=== PATIENT | female | born 1950 | race Caucasian/White ===

== ENCOUNTER 2023-02-06 09:56 | Inpatient (IN) ==
[2023-02-06] MEDS ORDERED: IOPAMIDOL 100 ML BOTTLE IV ONE (09:57)
[2023-02-06] MEDS ORDERED: 0.9 % SODIUM CHLORIDE 1,000 ML IV ONE (10:06)
[2023-02-06 10:31] LABS: POC Calcium, Ionized 1.14 (1.16-1.32); POC Creatinine 0.9 (0.6-1.2); POC Potassium 4.1 (3.3-5.1)
[2023-02-06] MEDS ORDERED: HYDROmorphone 0.5 MG/0.5 ML SYRINGE IV PRN (10:35)
[2023-02-06] MEDS ORDERED: ONDANSETRON 4 MG/2 ML VIAL IV ONE (10:35)
[2023-02-06 10:58] LABS: Basophils # (Auto) 0.04 K/mcL (0.00-0.30); Basophils % (Auto) 0.3 % (0.0-2.0); Eosinophils # (Auto) 0.05 K/mcL (0.00-0.70); Eosinophils % (Auto) 0.4 % (0.0-7.0); Hematocrit 44.3 % (34.1-44.9); Hemoglobin 14.9 g/dL (11.2-15.7); Mean Cell Volume 90.2 fL (80.0-100.0); Mean Corpuscular HGB Conc 33.6 g/dL (31.0-36.0); Mean Platelet Volume 10.5 fL (8.8-12.5); Monocytes # (Auto) 1.36 K/mcL (0.10-0.90); Monocytes % (Auto) 9.9 % (1.0-12.0); Platelet Count 378 K/mcL (140-440); RBC 4.91 M/mcL (3.59-5.38); Red Cell Distribution Width 12.5 % (11.5-14.5); WBC 13.8 K/mcL (4.5-11.0)
[2023-02-06 11:07] LABS: ALT/SGPT 15 U/L (<40); AST/SGOT 14 U/L (<32); Albumin 4.2 gm/dL (3.2-5.2); Alkaline Phosphatase 117 U/L (39-117); Bilirubin,Direct 0.4 mg/dL (<0.3); Globulin 3.3 gm/dL (2.2-3.7)
[2023-02-06] MEDS ORDERED: PIPERACILLIN SODIUM/TAZOBACTAM 3.375 GM in DEXTROSE 5% IN WATER 50 ML IV ONE (12:06)
[2023-02-06] MEDS ORDERED: PANTOPRAZOLE 40 MG VIAL IV ONE ×2 (13:46→14:14)
[2023-02-06] MEDS ORDERED: PIPERACILLIN SODIUM/TAZOBACTAM 3.375 GM in DEXTROSE 5% IN WATER 100 ML IV SCH ×2 (16:00→20:00)
[2023-02-06] MEDS: DEXTROSE 5%-LR 1,000 ML IV SCH (16:25)
[2023-02-06] MEDS: ONDANSETRON 4 MG/2 ML VIAL IV PRN (16:45)
[2023-02-06] MEDS: HYDROmorphone 0.5 MG/0.5 ML SYRINGE IV PRN ×3 (16:46→23:42)
[2023-02-06] MEDS: PIPERACILLIN SODIUM/TAZOBACTAM 3.375 GM in DEXTROSE 5% IN WATER 100 ML IV SCH (18:43)
[2023-02-07] MEDS: PIPERACILLIN SODIUM/TAZOBACTAM 3.375 GM in DEXTROSE 5% IN WATER 100 ML IV SCH ×3 (01:15→16:05)
[2023-02-07] MEDS: HYDROmorphone 0.5 MG/0.5 ML SYRINGE IV PRN ×5 (02:21→21:17)
[2023-02-07] MEDS: DEXTROSE 5%-LR 1,000 ML IV SCH ×3 (02:25→21:27)
[2023-02-07 06:28] LABS: Hematocrit 37.6 % (34.1-44.9); Hemoglobin 12.4 g/dL (11.2-15.7); Mean Cell Volume 91.9 fL (80.0-100.0); Platelet Count 332 K/mcL (140-440); RBC 4.09 M/mcL (3.59-5.38); Red Cell Distribution Width 12.4 % (11.5-14.5); WBC 10.5 K/mcL (4.5-11.0)
[2023-02-07 06:52] LABS: ALT/SGPT 15 U/L (<40); AST/SGOT 14 U/L (<32); Albumin 3.5 gm/dL (3.2-5.2); Albumin/Globulin Ratio 1.3 (1.0-2.3); Alkaline Phosphatase 96 U/L (39-117); Bilirubin,Total 1.6 mg/dL (0.1-1.0); Blood Urea Nitrogen 7 mg/dL (8-23); Calcium 8.9 mg/dL (8.6-10.4); Carbon Dioxide 25 mmol/L (22-30); Chloride 98 mmol/L (96-108); Globulin 2.8 gm/dL (2.2-3.7); Glomerular Filtration Rate 64; Glucose 108 mg/dL (70-105)
[2023-02-08] MEDS: PIPERACILLIN SODIUM/TAZOBACTAM 3.375 GM in DEXTROSE 5% IN WATER 100 ML IV SCH ×3 (01:00→16:23)
[2023-02-08] MEDS: HYDROmorphone 0.5 MG/0.5 ML SYRINGE IV PRN ×4 (01:34→23:24)
[2023-02-08 06:45] LABS: Hematocrit 36.8 % (34.1-44.9); Hemoglobin 12.1 g/dL (11.2-15.7); Mean Cell Volume 92.9 fL (80.0-100.0); Mean Corpuscular HGB Conc 32.9 g/dL (31.0-36.0); Platelet Count 352 K/mcL (140-440); RBC 3.96 M/mcL (3.59-5.38); Red Cell Distribution Width 12.4 % (11.5-14.5); WBC 9.5 K/mcL (4.5-11.0)
[2023-02-08] MEDS: DEXTROSE 5%-LR 1,000 ML IV SCH ×2 (07:34→18:45)
[2023-02-08 08:31] LABS: ALT/SGPT 22 U/L (<40); AST/SGOT 17 U/L (<32); Albumin 3.6 gm/dL (3.2-5.2); Albumin/Globulin Ratio 1.3 (1.0-2.3); Alkaline Phosphatase 94 U/L (39-117); Bilirubin,Total 1.1 mg/dL (0.1-1.0); Blood Urea Nitrogen 5 mg/dL (8-23); Calcium 8.8 mg/dL (8.6-10.4); Carbon Dioxide 26 mmol/L (22-30); Chloride 98 mmol/L (96-108); Globulin 2.8 gm/dL (2.2-3.7); Glomerular Filtration Rate 74; Glucose 108 mg/dL (70-105)
[2023-02-09] MEDS: PIPERACILLIN SODIUM/TAZOBACTAM 3.375 GM in DEXTROSE 5% IN WATER 100 ML IV SCH ×4 (00:38→22:16)
[2023-02-09] MEDS: DEXTROSE 5%-LR 1,000 ML IV SCH ×3 (01:45→17:09)
[2023-02-09] MEDS: HYDROmorphone 0.5 MG/0.5 ML SYRINGE IV PRN ×5 (04:38→22:12)
[2023-02-09 07:29] LABS: Hematocrit 34.5 % (34.1-44.9); Hemoglobin 11.3 g/dL (11.2-15.7); Mean Cell Volume 91.5 fL (80.0-100.0); Mean Corpuscular HGB Conc 32.8 g/dL (31.0-36.0); Mean Platelet Volume 10.1 fL (8.8-12.5); Platelet Count 363 K/mcL (140-440); RBC 3.77 M/mcL (3.59-5.38); Red Cell Distribution Width 12.2 % (11.5-14.5); WBC 7.6 K/mcL (4.5-11.0)
[2023-02-09 07:51] LABS: ALT/SGPT 26 U/L (<40); AST/SGOT 16 U/L (<32); Albumin 3.2 gm/dL (3.2-5.2); Albumin/Globulin Ratio 1.2 (1.0-2.3); Alkaline Phosphatase 95 U/L (39-117); Bilirubin,Total 0.9 mg/dL (0.1-1.0); Blood Urea Nitrogen 3 mg/dL (8-23); Calcium 8.7 mg/dL (8.6-10.4); Carbon Dioxide 26 mmol/L (22-30); Chloride 102 mmol/L (96-108); Globulin 2.7 gm/dL (2.2-3.7); Glomerular Filtration Rate 74; Glucose 111 mg/dL (70-105)
[2023-02-09] MEDS ORDERED: POTASSIUM CHLORIDE 40 MEQ in DEXTROSE 5% IN WATER 500 ML IV SCH (08:13)
[2023-02-09] MEDS ORDERED: fentaNYL 100 MCG/2 ML VIAL IV ONE ×2 (08:22→11:36)
[2023-02-09] MEDS ORDERED: PROPOFOL 200 MG/20 ML VIAL IV ONE (08:22)
[2023-02-09] MEDS ORDERED: ROCURONIUM 10 MG/ML ML IV ONE (08:22)
[2023-02-09] MEDS ORDERED: ONDANSETRON 4 MG/2 ML VIAL ONE (08:46)
[2023-02-09] MEDS ORDERED: HYDROmorphone 1 MG/ML SYRINGE ONE (10:04)
[2023-02-09] MEDS ORDERED: LABETALOL HCL 20 MG/4 ML VIAL IV ONE (10:27)
[2023-02-09] MEDS ORDERED: BUPIVACAINE W/EPI 0.25% 50 ML VIAL IJ ONE (10:28)
[2023-02-09] MEDS ORDERED: NALOXONE HCL 0.4 MG/ML VIAL IV PRN (11:51)
[2023-02-09] MEDS ORDERED: MEPERIDINE 25 MG/ML VIAL IV PRN (11:51)
[2023-02-09] MEDS ORDERED: LACTATED RINGERS 250 ML IV PRN (11:51)
[2023-02-09] MEDS ORDERED: HYDROmorphone 0.5 MG/0.5 ML SYRINGE IV PRN (11:51)
[2023-02-09] MEDS ORDERED: IPRATROPIUM/ALBUTEROL 3 ML AMPUL.NEB NEB PRN (11:51)
[2023-02-09] MEDS ORDERED: METHOCARBAMOL 1,000 MG/10 ML VIAL IV PRN (11:51)
[2023-02-09] MEDS ORDERED: PROMETHAZINE 25 MG/ML VIAL IV PRN (11:51)
[2023-02-09] MEDS ORDERED: ONDANSETRON 4 MG/2 ML VIAL IV PRN (11:51)
[2023-02-09] MEDS ORDERED: LACTATED RINGERS 1,000 ML IV SCH (12:00)
[2023-02-09] MEDS ORDERED: SUGAMMADEX SODIUM 200 MG/2 ML VIAL IV ONE (12:01)
[2023-02-09] MEDS: fentaNYL 100 MCG/2 ML VIAL IV PRN ×2 (13:08→13:15)
[2023-02-10] MEDS: HYDROmorphone 0.5 MG/0.5 ML SYRINGE IV PRN ×8 (00:52→20:13)
[2023-02-10] MEDS: DEXTROSE 5%-LR 1,000 ML IV SCH ×4 (03:21→22:14)
[2023-02-10] MEDS: PIPERACILLIN SODIUM/TAZOBACTAM 3.375 GM in DEXTROSE 5% IN WATER 100 ML IV SCH ×3 (05:40→21:50)
[2023-02-10 06:54] LABS: Hematocrit 38.5 % (34.1-44.9); Hemoglobin 12.4 g/dL (11.2-15.7); Mean Cell Volume 94.4 fL (80.0-100.0); Mean Corpuscular HGB Conc 32.2 g/dL (31.0-36.0); Mean Platelet Volume 9.4 fL (8.8-12.5); Platelet Count 389 K/mcL (140-440); RBC 4.08 M/mcL (3.59-5.38); WBC 12.9 K/mcL (4.5-11.0)
[2023-02-10 07:22] LABS: ALT/SGPT 37 U/L (<40); AST/SGOT 24 U/L (<32); Albumin 3.1 gm/dL (3.2-5.2); Alkaline Phosphatase 103 U/L (39-117); Blood Urea Nitrogen 2 mg/dL (8-23); Calcium 8.8 mg/dL (8.6-10.4); Carbon Dioxide 25 mmol/L (22-30); Chloride 101 mmol/L (96-108); Globulin 3.2 gm/dL (2.2-3.7); Glomerular Filtration Rate 87; Glucose 123 mg/dL (70-105)
[2023-02-10] MEDS: ONDANSETRON 4 MG/2 ML VIAL IV PRN (07:32)
[2023-02-10] MEDS: oxyCODONE IR 5 MG TABLET PO PRN ×4 (09:21→21:51)
[2023-02-11] MEDS: DEXTROSE 5%-LR 1,000 ML IV SCH ×4 (02:01→12:05)
[2023-02-11] MEDS: oxyCODONE IR 5 MG TABLET PO PRN ×5 (03:29→23:22)
[2023-02-11] MEDS: HYDROmorphone 0.5 MG/0.5 ML SYRINGE IV PRN ×2 (03:30→12:04)
[2023-02-11] MEDS: PIPERACILLIN SODIUM/TAZOBACTAM 3.375 GM in DEXTROSE 5% IN WATER 100 ML IV SCH ×3 (05:18→21:21)
[2023-02-11 06:24] LABS: Hematocrit 37.8 % (34.1-44.9); Hemoglobin 12.2 g/dL (11.2-15.7); Mean Cell Volume 94.5 fL (80.0-100.0); Mean Corpuscular HGB Conc 32.3 g/dL (31.0-36.0); Mean Platelet Volume 9.4 fL (8.8-12.5); Platelet Count 391 K/mcL (140-440); Red Cell Distribution Width 12.3 % (11.5-14.5); WBC 10.9 K/mcL (4.5-11.0)
[2023-02-11 07:09] LABS: ALT/SGPT 34 U/L (<40); AST/SGOT 17 U/L (<32); Albumin/Globulin Ratio 0.9 (1.0-2.3); Alkaline Phosphatase 103 U/L (39-117); Bilirubin,Total 0.9 mg/dL (0.1-1.0); Blood Urea Nitrogen 3 mg/dL (8-23); Calcium 8.9 mg/dL (8.6-10.4); Carbon Dioxide 27 mmol/L (22-30); Chloride 100 mmol/L (96-108); Globulin 3.2 gm/dL (2.2-3.7); Glomerular Filtration Rate 87; Glucose 109 mg/dL (70-105)
[2023-02-11] MEDS ORDERED: ACETAMINOPHEN 500 MG TABLET PO PRN (10:43)
[2023-02-12] MEDS: DEXTROSE 5%-LR 1,000 ML IV SCH ×2 (00:10→12:51)
[2023-02-12] MEDS: oxyCODONE IR 5 MG TABLET PO PRN ×3 (03:53→19:57)
[2023-02-12] MEDS: PIPERACILLIN SODIUM/TAZOBACTAM 3.375 GM in DEXTROSE 5% IN WATER 100 ML IV SCH ×3 (05:28→21:28)
[2023-02-12] MEDS: HYDROmorphone 0.5 MG/0.5 ML SYRINGE IV PRN (15:14)
[2023-02-12 17:49] LABS: Basophils # (Auto) 0.06 K/mcL (0.00-0.30); Basophils % (Auto) 0.6 % (0.0-2.0); Eosinophils # (Auto) 0.24 K/mcL (0.00-0.70); Eosinophils % (Auto) 2.6 % (0.0-7.0); Hematocrit 36.8 % (34.1-44.9); Hemoglobin 12.2 g/dL (11.2-15.7); Lymphocytes # (Auto) 1.42 K/mcL (1.50-4.80); Lymphocytes % (Auto) 15.3 % (15.5-49.0); Mean Cell Volume 90.6 fL (80.0-100.0); Mean Corpuscular HGB Conc 33.2 g/dL (31.0-36.0); Mean Platelet Volume 9.1 fL (8.8-12.5); Monocytes # (Auto) 0.92 K/mcL (0.10-0.90); Monocytes % (Auto) 9.9 % (1.0-12.0); Neutrophils % (Auto) 71.3 % (38.0-78.0); Platelet Count 456 K/mcL (140-440); RBC 4.06 M/mcL (3.59-5.38); Red Cell Distribution Width 11.9 % (11.5-14.5); WBC 9.3 K/mcL (4.5-11.0)
[2023-02-13] MEDS: oxyCODONE IR 5 MG TABLET PO PRN ×4 (00:48→20:09)
[2023-02-13] MEDS: PIPERACILLIN SODIUM/TAZOBACTAM 3.375 GM in DEXTROSE 5% IN WATER 100 ML IV SCH ×3 (05:05→22:39)
[2023-02-13 07:41] LABS: ALT/SGPT 27 U/L (<40); AST/SGOT 15 U/L (<32); Albumin 3.1 gm/dL (3.2-5.2); Albumin/Globulin Ratio 1.1 (1.0-2.3); Alkaline Phosphatase 104 U/L (39-117); Bilirubin,Direct < 0.2 mg/dL (0-0.3); Bilirubin,Total 0.8 mg/dL (0.1-1.0); Blood Urea Nitrogen 3 mg/dL (8-23); Calcium 8.7 mg/dL (8.6-10.4); Carbon Dioxide 24 mmol/L (22-30); Chloride 102 mmol/L (96-108); Globulin 2.9 gm/dL (2.2-3.7); Glomerular Filtration Rate 87; Glucose 99 mg/dL (70-105); Lactate Dehydrogenase 140 U/L (135-225); Phosphorous 3.5 mg/dL (2.5-4.5); Triglycerides 72 mg/dL (<150); Uric Acid 1.6 mg/dL (2.5-8.0)
[2023-02-14] MEDS: oxyCODONE IR 5 MG TABLET PO PRN ×2 (02:48→12:40)
[2023-02-14] MEDS: PIPERACILLIN SODIUM/TAZOBACTAM 3.375 GM in DEXTROSE 5% IN WATER 100 ML IV SCH (05:24)
[2023-02-14] MEDS ORDERED: LACTULOSE 20 GM/30 ML ORAL.SOL PO ONE (11:22)
[2023-02-14] MEDS ORDERED: BISACODYL 10 MG SUPP.RECT PR ONE (11:23)
== END 2023-02-14 17:25 | disposition home or self-care (01) | DRG 446 ==
LOC: ED 09:56 → MEDSUR 09:56
PROVIDERS: ADMIT Surgery Surgical Critical Care; ATTEND Surgery Surgical Critical Care